=== PATIENT | male | born 1960 | race Caucasian/White ===

== ENCOUNTER → 2017-01-20 | Outpatient (CLI) | payer BC, OTHER ==
[2016-12-03 17:00] VITALS: BP 117/74
[~2017-01-20] MED LIST: ACET325T9 PO; ASPI325T11 PO; ATORVASTATIN CA80 MG PO; DIGO125T PO; FLUO20CA8 PO; FURO-69 PO; GABA-585 PO; LORA10TA3 PO; METO25TA4 PO; SPIR25TA3 PO; TAMS0.4C2 PO; WARF4TAB7 PO
[2017-01-20 16:49] LABS: CREATININE 1.1 mg/dL (0.7-1.3); GFR 68.8; POTASSIUM 3.3 mmol/L (3.5-5.1)
== END | disposition home or self-care (01) ==
LOC: LAB 16:06
DX: I11.0 Hypertensive heart disease with heart failure (principal); I25.810 Atherosclerosis of coronary artery bypass graft(s) without angina pectoris; I50.22 Chronic systolic (congestive) heart failure; I25.5 Ischemic cardiomyopathy; R29.810 Facial weakness; R26.9 Unspecified abnormalities of gait and mobility; I21.4 Non-ST elevation (NSTEMI) myocardial infarction; Z95.810 Presence of automatic (implantable) cardiac defibrillator; Z95.1 Presence of aortocoronary bypass graft
CPT/HCPCS: 36415; 80048